=== PATIENT | female | born 1960 | race Two or more races ===

== ENCOUNTER 2023-07-25 10:39 | Emergency (ER) | payer MEDICAID ==
[~2023-07-25] VITALS: Ht 154.9 cm; Wt 61.6 kg
[2023-07-25] MEDS ORDERED: MORPHINE SULFATE INJ 2 MG/ml SYRG IM ONE (14:30)
[2023-07-25] MEDS ORDERED: ONDANSETRON ODT 4 MG TAB PO ONE (14:30)
[2023-07-25 14:57] VITALS: BP 155/66; PULSE 79; RESP 18; TEMP 98.3; O2SAT 94
== END 2023-07-25 15:07 | disposition home or self-care (01) ==
LOC: ER 10:39
DX: R51.9 Headache, unspecified (principal); M54.2 Cervicalgia; M54.9 Dorsalgia, unspecified; M79.603 Pain in arm, unspecified; I10 Essential (primary) hypertension; E11.9 Type 2 diabetes mellitus without complications; E78.5 Hyperlipidemia, unspecified; Z88.2 Allergy status to sulfonamides; Z88.8 Allergy status to other drugs, medicaments and biological substances; V89.2XXA Person injured in unspecified motor-vehicle accident, traffic, initial encounter; Y93.89 Activity, other specified; Y92.89 Other specified places as the place of occurrence of the external cause; Y99.8 Other external cause status
CPT/HCPCS: 70450; 71045; 72125; 96372; 99285; J2270; Q0162